=== PATIENT | female | born 1990 | race Caucasian/White ===

== ENCOUNTER 2020-02-18 13:55 | Outpatient (CLI) | payer OTHER, SELFPAY ==
--- NOTE | 2020-02-18 14:11 | P.TNLD_ITS ---
Visit Information Visit Information Date of evaluation: 02/18/20 Primary OB Provider: Lexii Carcamo Comments/Additional reasons for admission: This patient was sent to the Center for an NST after being found to have an elevated FHR on bedside dopplar in the setting of copious movement. She has no complaints obstetrical or otherwise, and has had an otherwise uncomplicated . 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[employer]) current occupational exposures/hazards: No special corazon needs: No seatbelt use: always water heater temp set < 120 deg: Yes working smoke detector in home: Yes fire extinguisher in home: Yes carbon monox detector in home: Yes firearms in home: Yes firearms unloaded and locked: Yes do you feel safe at home: Yes Smoking Status: Never smoker alcohol intake: never substance use type: does not use well-balanced diet: daily or most days caffeine: No eating out: rarely or never Type(s) of exercise: walking frequency: 1-2 times per week Review of Systems Constitutional Constitutional: Reports system reviewed and no additional complaints, except as documented Evaluation Evaluation Baseline heart rate: 135 Variability: Moderate (11-25) monitor accelerations: Present monitor decelerations: Absent Category of Tracing: I Diagnosis, Plan/Disposition Plan/Disposition Plan: Home with routine precautions. OB Disposition: home
== END 2020-02-18 14:28 | disposition home or self-care (01) ==
LOC: LABOR 14:07 → OB 02-21 15:38
PROVIDERS: Referring Provider Obstetrics & Gynecology; Visit Provider Obstetrics & Gynecology
DX: O36.8330 Maternal care for abnormalities of the fetal heart rate or rhythm, third trimester, not applicable or unspecified (principal); Z3A.32 32 weeks gestation of pregnancy
CPT/HCPCS: 59025; G0378; G0379

== ENCOUNTER → 2020-03-20 14:41 | Outpatient (CLI) | payer OTHER, SELFPAY ==
[2020-03-20 20:30] LABS: Strep Grp B PCR NEG for Grp B Strep
== END ==
PROVIDERS: PCP Obstetrics & Gynecology; Visit Provider Obstetrics & Gynecology
DX: Z34.03 Encounter for supervision of normal first pregnancy, third trimester (principal); Z34.90 Encounter for supervision of normal pregnancy, unspecified, unspecified trimester; Z3A.36 36 weeks gestation of pregnancy
CPT/HCPCS: 87653

== ENCOUNTER 2020-04-10 16:16 | Observation (INO) | payer OTHER, SELFPAY ==
--- NOTE | 2020-04-10 16:43 | P.TNLD_ITS ---
Visit Information Visit Information Date of evaluation: 04/10/20 Primary OB Provider: Lexii Carcamo Reason for Evaluation: Yes non-stress test Comments/Additional reasons for admission: Patient sent to L&D in likely latent labor with decreased movement, contractions q4-5 and no other complaints. Reports feeling baby move normally since arrival. 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 occupational exposures/hazards: No special corazon needs: No seatbelt use: always water heater temp set < 120 deg: Yes working smoke detector in home: Yes fire extinguisher in home: Yes carbon monox detector in home: Yes firearms in home: Yes firearms unloaded and locked: Yes do you feel safe at home: Yes Smoking Status: Never smoker alcohol intake: never substance use type: does not use well-balanced diet: daily or most days caffeine: No eating out: rarely or never Type(s) of exercise: walking frequency: 1-2 times per week Evaluation Evaluation Baseline heart rate: 150 Variability: Moderate (11-25) monitor accelerations: Present monitor decelerations: Absent Category of Tracing: Reactive Diagnosis, Plan/Disposition Plan/Disposition Plan: Patient has reactive NST and feels movement, offered recheck but desires to labor at home. Precautions for return were discussed. OB Disposition: home
== END 2020-04-10 17:00 | disposition home or self-care (01) ==
LOC: LABOR 16:19
PROVIDERS: Admitting Provider Obstetrics & Gynecology; PCP Obstetrics & Gynecology; Referring Provider Obstetrics & Gynecology; Visit Provider Obstetrics & Gynecology
DX: O36.8130 Decreased fetal movements, third trimester, not applicable or unspecified (principal); Z3A.39 39 weeks gestation of pregnancy
CPT/HCPCS: 59025; G0378; G0379

== ENCOUNTER 2020-04-10 22:23 | Inpatient (IN) | payer OTHER, SELFPAY ==
[2020-04-10 22:54] LABS: Add Manual Diff / Slide Review NO; Basophils Absolute Auto 100 /uL (0-100); Basophils Percent Auto 0.3 % (0-2); Eosinophils Absolute Auto 0 /uL (0-450); Eosinophils Percent Auto 0.1 % (2-4); Hematocrit 37.4 % (36-46); Hemoglobin 12.4 g/dL (12.0-16.0); Lymphocytes Absolute Auto 1700 /uL (1100-4500); Lymphocytes Percent Auto 9.6 % (25-40); Mean Corpuscular HGB Conc 33.3 % (30-36); Mean Corpuscular Hemoglobin 27.7 PG (26-34); Mean Corpuscular Volume 83.3 fL (80-100); Monocytes Absolute Auto 1100 /uL (0-900); Monocytes Percent Auto 6.4 % (3-14); Neutrophils Absolute Auto 14900 /uL (1500-7000); Neutrophils Percent Auto 83.6 % (50-75); Platelet Count 279 X10^3/uL (150-400); Red Blood Cell Count 4.49 X10^6/uL (4.0-5.2); Red Cell Distribution Width 14.4 % (11.6-14.8); White Blood Cell Count 17.9 X10^3/uL (4.5-11.0)
[2020-04-10] MEDS: LACTATED RINGERS 1,000 ML 100 ML IV (23:16)
[2020-04-10 23:38] LABS: COVID19 -Nasal RAPID Negative (Negative)
[2020-04-11] MEDS: OXYTOCIN PREMIX 30 UNIT/500 ML PLAST..BAG 300 UNIT IV (02:40)
--- NOTE | 2020-04-11 03:14 | PM.OBHP.1 ---
OB HPI Date/Time Date of admission: 04/11/20 Date Patient Seen: 04/11/20 Time Patient Seen: 01:30 History of Present Condition Chief complaint: : 1 Para: 0 Estimated Date of Delivery: 04/14/20 Estimated Gestational Age (weeks): 39 Narrative: Lisbeth Partida is a 29 year old female admitted in active labor. She had spontaneous rupture membranes at 10:25 p.m. on 04/10/2020 for thick meconium-stained fluid History of Present care: good care, initiated at week # (10), number of visits (10) and pounds weight gain (37) Dating criteria: based on 1st trimester US only Ultrasounds: normal mid trimester US Obstetrical complications: none Medical complications: none Preadmission Labs Blood type: O (+) positive -: Antibody screen: negative, GBS status: negative, HBsAG: negative, HIV: negative and RPR/VDLR: negative -: Chlamydia screen: not detected and Gonorrhea screen: not detected -: Rubella: immune HCAB: negative PAP: Normal Integrated screen: Normal 1 hr GTT: 93 Evaluation Evaluation Baseline heart rate: 150 Variability: Moderate (11-25) monitor accelerations: Present monitor decelerations: Early Contraction Frequency (minutes): 4 Uterine Contraction Intensity: Strong/Firm Category of Tracing: Reactive Cervical dilation (cm): 6 Cervical effacement (%): 90 station: -1 Laboratory results: Laboratory Tests 04/10/20 04/10/20 04/10/20 22:30 22:30 23:19 WBC 17.9 H RBC 4.49 Hgb 12.4 Hct 37.4 MCV 83.3 MCH 27.7 MCHC 33.3 RDW 14.4 Plt Count 279 Neut % (Auto) 83.6 H Lymph % (Auto) 9.6 L [place] % (Auto) 6.4 Eos % (Auto) 0.1 L Baso % (Auto) 0.3 Neut # (Auto) 76678 H Lymph # (Auto) 1700 [place] # (Auto) 1100 H Eos # (Auto) 0 Baso # (Auto) 100 COVID-19 PCR Negative Blood Type O Positive Antibody Screen Negative PFSH Surgical History H/O tooth extraction (Acute ~2012) Hx of tonsillectomy (Acute ~2014) Family History Grandmother Colon cancer Social History marital status: (Diogo Partida [phone]) details: Diogo Partida [phone] household members: spouse (Diogo Partida [phone]) lives independently: Yes education level: college (Some college) 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/hazards: No special corazon needs: No seatbelt use: always water heater temp set < 120 deg: Yes working smoke detector in home: Yes fire extinguisher in home: Yes carbon monox detector in home: Yes firearms in home: Yes firearms unloaded and locked: Yes do you feel safe at home: Yes Smoking Status: Never smoker alcohol intake: never substance use type: does not use well-balanced diet: daily or most days caffeine: No eating out: rarely or never Type(s) of exercise: walking frequency: 1-2 times per week Meds Home Medications and Allergies Home Medications Medication Instructions Recorded Confirmed Type MULTIVITAMIN 1 tab PO QDAY #0 01/05/17 03/03/20 History [ASTRAUS] #0 01/05/17 03/03/20 History [PROBIOTIC] #0 01/05/17 03/03/20 History ascorbic acid (vitamin C) 500 mg PO BID #0 01/05/17 03/03/20 History magnesium 200 mg PO #0 01/05/17 03/03/20 History prenat.vits,joe,xzd-bums-xjrgd 1 tab PO DAILY 01/27/20 03/03/20 History Allergies Allergy/AdvReac Type Severity Reaction Status Date / Time acetaminophen [From Vicodin] Allergy Verified 03/03/20 11:59 apple Allergy Verified 03/03/20 11:59 hydrocodone [From Vicodin] Allergy Verified 03/03/20 11:59 peach Allergy Verified 03/03/20 11:59 Review of Systems Review of Systems Narrative: Patient denies headaches, scotomata, epigastric pain. Good movement. ROS: Yes All systems reviewed with the patient and are negative except as otherwise documented Exam Vital Signs (past 8 hours): Blood pressure 123/75, pulse of 96, temperature 97.5? Narrative Exam Narrative: HEENT exam within normal limits. Lungs are clear to auscultation and percussion. Heart is regular rate and rhythm no S3-S4 or murmurs. Abdomen is gravid. Fetus is vertex. Extremities without edema and nontender. Objective Labs Result Diagrams: 04/10/20 22:30 Labs: Laboratory Results - last 24 hr 04/10/20 04/10/20 04/10/20 22:30 22:30 23:19 WBC 17.9 H RBC 4.49 Hgb 12.4 Hct 37.4 MCV 83.3 MCH 27.7 MCHC 33.3 RDW 14.4 Plt Count 279 Neut % (Auto) 83.6 H Lymph % (Auto) 9.6 L [place] % (Auto) 6.4 Eos % (Auto) 0.1 L Baso % (Auto) 0.3 Neut # (Auto) 29613 H Lymph # (Auto) 1700 [place] # (Auto) 1100 H Eos # (Auto) 0 Baso # (Auto) 100 COVID-19 PCR Negative Blood Type O Positive Antibody Screen Negative Assessment and Plan Assessment and Plan Assessment and Plan narrative: Term in active labor. Anticipate vaginal delivery.
--- NOTE | 2020-04-11 03:23 | PM.OBPRVD ---
Events: No Care Labor & Delivery Delivery date: 04/11/20 Intrapartal events: None Cervical ripening method: none Induction method: none Delivery monitor: external FHT and external uterine L&D Laceration Description: Perineal - 2nd Degree Delivery repair: chromic (3 0) Estimated blood loss (mL): 200 Anesthesia type: Epidural Narrative: Patient arrived on Labor and delivery in active labor. She received an epidural catheter for pain control. heart tones were category 1 to category 2 throughout labor. With pushing the patient did have a couple episodes of prolonged bradycardia that responded with change of position, O2, and fluid bolus. The patient delivered spontaneously, over an intact perineum. The viable female was placed on the maternal abdomen. After the cord stopped pulsating the cord was clamped, cut, and cord bloods obtained. The placenta delivered spontaneously, intact, and with 3 vessels. There were no cervical, vaginal tears. A second-degree midline perineal tear was repaired with 3 0 chromic suture. Both infant mother doing well. [place] Baby 1: Infant gender: Female Presentation: vertex position: Right Occiput Anterior Placenta delivery description: Spontaneous cord vessel description: 3 Vessels score (1 min): 9 score (5 min): 9 Plan for aftercare: Routine care
[2020-04-11] MEDS: miSOPROStoL 200 MCG TABLET 800 MCG PR (04:30)
--- NOTE | 2020-04-11 04:37 | PM.OBPN.1 ---
Subjective - OB Subjective Narrative: Patient with continued slightly heavier than normal bleeding despite Pitocin. Date Patient Seen: 04/11/20 Time Patient Seen: 04:37 Exam Narrative Exam Narrative: Patient with increased bleeding despite Pitocin. Uterus will firm with massage. 800 mg of Cytotec was placed per rectum. Objective Labs Result Diagrams: 04/10/20 22:30 Labs: Laboratory Results - last 24 hr 04/10/20 04/10/20 04/10/20 22:30 22:30 23:19 WBC 17.9 H RBC 4.49 Hgb 12.4 Hct 37.4 MCV 83.3 MCH 27.7 MCHC 33.3 RDW 14.4 Plt Count 279 Neut % (Auto) 83.6 H Lymph % (Auto) 9.6 L [place] % (Auto) 6.4 Eos % (Auto) 0.1 L Baso % (Auto) 0.3 Neut # (Auto) 17646 H Lymph # (Auto) 1700 [place] # (Auto) 1100 H Eos # (Auto) 0 Baso # (Auto) 100 COVID-19 PCR Negative Blood Type O Positive Antibody Screen Negative Assessment & Plan Assessment and Plan (1) hemorrhage: Status: Acute Plan Comments: Patient with increased bleeding despite Pitocin. She was given rectal Cytotec and will be monitored. Time Spent With Patient Time: Total time spent is greater than 50% in coordination of care (as documented) at patient's floor/unit and/or counseling patient: Time with patient: less than 15 minutes
[2020-04-11] MEDS: PRENATAL VIT,CALC/IRON/FOLIC 1 TABLET 1 TAB PO (09:53)
[2020-04-11] MEDS: DOCUSATE 100 MG CAPSULE PO (09:53)
[2020-04-11] MEDS: FERROUS GLUCONATE 324 MG TABLET PO (09:53)
[2020-04-11] MEDS: IBUPROFEN 600 MG TABLET PO ×3 (09:58→23:57)
--- NOTE | 2020-04-11 13:14 | P.PNOB_ITS ---
Subjective - OB Subjective Patient comments: no complaints and pain well controlled [place] baby status: doing well [place] feeding status: exclusively breast feeding Narrative: This patient presented in active labor and underwent an uncomplicated vaginal delivery, though she did receive rectal Cytotec for persistent increased lochia. The patient had no perineal laceration. Date Patient Seen: 04/11/20 Time Patient Seen: 12:45 Interval history: Patient doing well this a.m., ambulating, voiding, mild to moderate lochia, good pain control, tolerating p.o., has already had bowel movement. Patient reports difficulty with latching, medical cost consultant en route. Exam Vital Signs (past 8 hours): 116/70, HR90 Const General: cooperative, healthy appearing and comfortable Resp Effort & Inspection: normal respiratory effort Auscultation: clear to auscultation bilaterally Cardio Rate: regular rate Rhythm: regular rhythm GI Palpation: soft and No tender Objective Labs Result Diagrams: 04/10/20 22:30 Labs: Laboratory Results - last 24 hr 04/10/20 04/10/20 04/10/20 22:30 22:30 23:19 WBC 17.9 H RBC 4.49 Hgb 12.4 Hct 37.4 MCV 83.3 MCH 27.7 MCHC 33.3 RDW 14.4 Plt Count 279 Neut % (Auto) 83.6 H Lymph % (Auto) 9.6 L [place] % (Auto) 6.4 Eos % (Auto) 0.1 L Baso % (Auto) 0.3 Neut # (Auto) 86499 H Lymph # (Auto) 1700 [place] # (Auto) 1100 H Eos # (Auto) 0 Baso # (Auto) 100 COVID-19 PCR Negative Blood Type O Positive Antibody Screen Negative Assessment & Plan Assessment and Plan (1) hemorrhage: Status: Acute Plan day: 1 plan OB: routine care Comments: This patient is doing well on day 1, meeting goals appropriately. Planning for discharge tomorrow morning. Time Spent With Patient Time: Total time spent is greater than 50% in coordination of care (as documented) at patient's floor/unit and/or counseling patient: Time with patient: less than 15 minutes
[2020-04-11 20:32] VITALS: BP 94/53
[2020-04-12 06:55] LABS: Add Manual Diff / Slide Review NO; Basophils Absolute Auto 100 /uL (0-100); Basophils Percent Auto 0.6 % (0-2); Eosinophils Absolute Auto 100 /uL (0-450); Eosinophils Percent Auto 0.9 % (2-4); Hematocrit 33.5 % (36-46); Hemoglobin 11.2 g/dL (12.0-16.0); Lymphocytes Absolute Auto 3000 /uL (1100-4500); Lymphocytes Percent Auto 21.2 % (25-40); Mean Corpuscular HGB Conc 33.3 % (30-36); Mean Corpuscular Hemoglobin 27.9 PG (26-34); Monocytes Absolute Auto 900 /uL (0-900); Monocytes Percent Auto 6.2 % (3-14); Neutrophils Absolute Auto 10000 /uL (1500-7000); Neutrophils Percent Auto 71.1 % (50-75); Platelet Count 257 X10^3/uL (150-400); Red Blood Cell Count 3.99 X10^6/uL (4.0-5.2); Red Cell Distribution Width 14.3 % (11.6-14.8)
[2020-04-12 09:24] VITALS: BP 116/78; PULSE 89; RESP 18; TEMP 36.8
[2020-04-12] MEDS: IBUPROFEN 600 MG TABLET PO (10:34)
[2020-04-12] MEDS: PRENATAL VIT,CALC/IRON/FOLIC 1 TABLET 1 TAB PO (10:34)
[2020-04-12] MEDS: DOCUSATE 100 MG CAPSULE PO (10:34)
--- NOTE | 2020-04-13 07:31 | PM.OBPN.1 ---
Subjective - OB Subjective Patient comments: no complaints [place] baby status: doing well and nursing well [place] feeding status: exclusively breast feeding Date Patient Seen: 04/12/20 Time Patient Seen: 13:00 Interval history: Patient is a 29-year-old 1 para 1 day # 1-2 status post spontaneous vaginal delivery with a second-degree perineal laceration. Exam Vital Signs (past 8 hours): Generally: Patient is sitting up in bed, holding infant, no acute distress Fundus: Firm at U -1 Extremities: Negative [place], no edema Objective Labs Result Diagrams: 04/12/20 06:20 Assessment & Plan Assessment and Plan (1) hemorrhage: Status: Acute Plan day: 1 plan OB: discharge home and follow up 6 weeks Time Spent With Patient Time: Total time spent is greater than 50% in coordination of care (as documented) at patient's floor/unit and/or counseling patient: Time with patient: less than 15 minutes
--- NOTE | 2020-04-13 07:42 | PM.OBDS.1 ---
Discharge Providers Provider Date of admission: 04/10/20 22: Discharge Date: 04/12/20 Primary care physician: Lexii Carcamo MD Consults: 04/12/20 03:29 Consult to Production Shift Supervisor Routine Comment: Discharge provider: Lyssa Retana MD Summary Hospital Course Date Patient Seen: 04/12/20 Time Patient Seen: 13:00 Procedures: Spontaneous rupture of membranes with thick meconium-stained amniotic fluid Spontaneous vaginal delivery Second-degree laceration repair Hospital Course: Patient is a 29-year-old 1 para 1 who presented with spontaneous rupture of membranes on April 11, 2020 with thick meconium-stained amniotic fluid. She received an epidural for pain management. She progressed in labor and had a spontaneous vaginal delivery with a second-degree laceration. Her course was unremarkable. She is discharged home. Peripartum Data Delivery Method: Natural Vaginal Laceration Description: Perineal - 2nd Degree Episiotomy description: None Procedures: Epidural analgesia Spontaneous vaginal delivery complications: none [place] 1: Gender: Female Disposition of : home Discharge Diagnosis (1) hemorrhage: Status: Acute Status at Discharge Cognitive/behavioral status at discharge: oriented Overall status at discharge: patient is progressing back to baseline Time Spent with Patient Time attestation: Total time spent providing and/or coordinating discharge services: Time spent: Less than 30 minutes Objective Labs Result Diagrams: 04/12/20 06:20 Discharge Plan Discharge Plan Patient Disposition: Home Discharge comment: Appointment with ,Wednesday, May 23 at 10:00 AM. Ibuprofen 600mg every 6 hours as needed for cramping Tylenol 650mg every 6 hours as needed for pain Discharge orders & Medications Prescriptions: Continued ascorbic acid (vitamin C) 500 MG tablet 500 mg PO BID Qty: 0 RF: 0 MULTIVITAMIN 1 tab PO QDAY Qty: 0 RF: 0 prenat.vits,joe,jin-hzrl-wtlhs Tablet 1 tab PO DAILY RF: 0 Discontinued magnesium 200 MG tablet 200 mg PO Qty: 0 RF: 0 [PROBIOTIC] Qty: 0 RF: 0 [ASTRAUS] Qty: 0 RF: 0 Follow up/Referrals: Lexii Carcamo MD [Primary Care Provider] - 6 Weeks (Appointment with on at 10:00 am) Diet/Activity/Treatments Diet: Regular Activity: Nothing in the vagina for 6 weeks. Avoid lifting more than 10 pounds for 6 weeks. If you have increasing bleeding, pain, fevers, chills, nausea, headaches that don't improve, or any other symptoms or concerns, call the clinic or come to the emergency room. Skin/Wound/Dressing Care Report to your healthcare provider any signs of infection, such as:: chills, fever, increased pain, unusual drainage and unusual redness Visit Report/Discharge Packet Instructions: DI for Labor and Delivery, Vaginal Visit Report Forms: Patient Portal/API, Stroke Signs & Symptoms Discharge Data Primary Care Provider: Lexii Carcamo Discharges patient from system. Discharge Date/Time: 04/12/20 13:20
== END 2020-04-12 13:20 | disposition home or self-care (01) | DRG 806 ==
PROVIDERS: Admitting Provider Specialist; PCP Obstetrics & Gynecology; Referring Provider Family Medicine; Visit Provider Obstetrics & Gynecology
DX: O70.1 Second degree perineal laceration during delivery (principal); O72.0 Third-stage hemorrhage; Z37.0 Single live birth; O77.0 Labor and delivery complicated by meconium in amniotic fluid; Z3A.39 39 weeks gestation of pregnancy; Z11.59 Encounter for screening for other viral diseases
CPT/HCPCS: 01967; 36415; 59025; 59050; 59410; 85025; 86850; 86900; 86901; 87635; G0378; G0379; J2590; S0191